=== PATIENT | female | born 1960 | race Caucasian/White ===

== ENCOUNTER 2021-01-25 08:53 | Emergency (ER) | payer BC ==
[2021-01-25] MEDS ORDERED: ZYRTEC-D TABLE1 EACH PO (12:54)
== END 2021-01-25 13:15 | disposition home or self-care (01) ==
LOC: ER1 08:53
DX: U07.1 COVID-19 (principal); M06.9 Rheumatoid arthritis, unspecified; Z88.2 Allergy status to sulfonamides; Z79.899 Other long term (current) drug therapy
CPT/HCPCS: 0240U; 71045; 99283